=== PATIENT | female | born 1995 | race Hispanic/Latino ===

== ENCOUNTER 2023-11-17 08:01 | Emergency (ER) | payer SELFPAY ==
[~2023-11-17] VITALS: Ht 152.4 cm; Wt 68.7 kg
[2023-11-17] MEDS ORDERED: KEPP10002 PO ×4 (08:15→09:45)
[2023-11-17] MEDS: levETIRAcetam INJection 1,000 MG in D5W 100 ML IV ONE (08:15)
[2023-11-17 08:17] VITALS: TEMP 97
[2023-11-17 09:30] VITALS: BP 112/74; O2SAT 100
== END 2023-11-17 10:00 | disposition home or self-care (01) ==
LOC: M ED 08:01 → EDBD 08:01 → M ED 10:00
DX: G40.909 Epilepsy, unspecified, not intractable, without status epilepticus (principal); Z88.1 Allergy status to other antibiotic agents; Z79.899 Other long term (current) drug therapy
CPT/HCPCS: 96365; 99284; J1953